=== PATIENT | male | born 1940 | race Caucasian/White ===

== ENCOUNTER 2016-07-17 21:44 | Emergency (ER) | payer MEDICARE, OTHER ==
[2016-07-17] MEDS ORDERED: Sodium Phosphate,Monobasic/Sodium Phosphate,Dibasic Enema 133 ML Bottle RECTAL ONE (22:08)
[2016-07-17 23:02] VITALS: BP 119/67
--- NOTE | 2016-07-18 04:51 | ER ---
DATE SEEN: 07/17/2016 REASON FOR VISIT: Constipation. HISTORY OF PRESENT ILLNESS: This is a 76-year-old male with constipation for more than 24 hours. He feels a lot of stool in his rectum and is unable to pass it despite MiraLAX and Colace. REVIEW OF SYSTEMS: Denies abdominal pain, nausea or vomiting. PAST MEDICAL HISTORY: Hypertension, hyperlipidemia, rib fractures. PHYSICAL EXAMINATION: GENERAL: He is not in distress. VITAL SIGNS: He is afebrile and blood pressure is 119/67. ABDOMEN: Soft, mildly distended. RECTAL: Revealed a lot of stool in the rectal vault impacted. IMPRESSION: 1. Rectal fecal impaction. 2. Constipation. PLAN: I digitally was able to move copious amounts of stool. He also had an enema then was able to pass some more. I discharged him home on lactulose 15 mg b.i.d. p.r.n. and asked him to follow with physician before the end of the week. TIME SEEN: 2300 hours. /[id number] ETHAN/APRIL
== END 2016-07-18 00:33 | disposition home or self-care (01) ==
LOC: FB.ED 21:44
DX: K56.41 Fecal impaction (principal); K59.00 Constipation, unspecified; I10 Essential (primary) hypertension; E78.5 Hyperlipidemia, unspecified
CPT/HCPCS: 99282; 99283